=== PATIENT | male | born 1960 | race Caucasian/White ===

== ENCOUNTER 2025-05-15 10:42 | Inpatient (IN) ==
[2025-05-15] MEDS ORDERED: VANCOMYCIN CONSULT ACTIVE PRN (10:55)
[2025-05-15] MEDS: SODIUM CHLORIDE 0.9% 1,000 ML IV SCH (11:12)
--- NOTE | 2025-05-15 11:12 | Emergency Department Note ---
Impression & Plan Acute hypoxemic respiratory failure, Acute pneumonia, Tracheostomy dependent ED Provider Note NAME: BALTAZAR MALIN AGE: 65 SEX: M : 1960 ARRIVES VIA: Ambulance INFORMANT: Patient, ED PROVIDER(S): Jose Ruano MD CHIEF COMPLAINT: MEDICAL DECISION MAKING: Patient presents due to concern for shortness of breath and noted to have productive purulent sputum. IV was established and blood work was obtained along with sepsis protocols being initiated. Patient was ordered IV vancomycin and Zosyn. MRSA swab obtained. I did speak with respiratory to help with the patient's trach suctioning as well as trach collar placement and oxygen administration. The patient's patient did receive IV Zosyn and vancomycin. Patient blood work with a hemoglobin of 7.5 not significantly changed from March. Normal white count with a normal platelet count kidney function with MIGUEL. The patient was ordered additional IV fluids. I did update the patient's daughter Lucero at bedside he was comfortable with the plan of care. I did speak the on-call medicine service Dr. Guillen and the patient was admitted to the medicine service. Critical Care: I have personally spent 45 minutes of critical care time in direct management of this patient. This includes bedside care, interpretation of diagnostic studies, and testing, discussion with consultants, patient, and family members, and other require inpatient management activities. This 45 minutes is in excess of all separately billable procedures. Discussion w/ other healthcare providers: Dr. Guillen inpatient medicine service Prior /Outside records reviewed: None Differential diagnosis: Reactive airway disease, pneumonia, pneumothorax, COPD, CHF, ACS, pulmonary embolism, musculoskeletal, GERD as well as other pathologies were considered. Diagnostics, as interpreted by me: ECG: Normal sinus rhythm, rate of 90, normal intervals, normal axis no ST elevations. Cardiac monitoring: An order was placed for continuous cardiac monitoring. The monitor shows a rate of 89 with sinus rhythm. Patient was placed on pulse oximetry Medical decision rules: None Imaging studies: I informally interpreted the patient's chest x-ray does show concern for right lower lobe pneumonia with formal report to follow. HPI: Patient presents due to concern for shortness of breath. He reportedly went to [place] today and was noted to have sputum coming from his trach. The patient does have a prior history of head and neck cancer but does not reportedly have significant additional medical problems per the daughter Lucero who does provide some of the history. Patient reportedly did require a graft taken from his foot in order to reconstruct his jaw. The daughter reports that he did not have any issues up until today and that today's visit was supposed to be for routine follow-up purposes. He does follow with Dr. Andres for his head neck cancer and had followed with Dr. Mac in the past. History is somewhat limited given the patient's inability to vocalize complaints. PAST MEDICAL HISTORY: See Below PAST SURGICAL HISTORY: See Below SOCIAL HISTORY: See Below HOME MEDICATIONS: See Below ALLERGIES: See Below VITALS: See Below PHYSICAL EXAMINATION: GENERAL: Ill in appearance. Mild distress. EYE EXAM: Normal conjunctiva. PERRL, no anisocoria and EOM's grossly intact w/o pain. OROPHARYNX: Moist mucus membranes, grossly normal dentition. NECK: Trachea midline, no stridor. Trach in place. Productive purulent sputum noted coming from the trach tube. LUNGS: Coarse sounds in the right lower chest. Normal chest wall mechanics. HEART: NSR, no MRG. ABDOMEN: Abdomen soft, non-tender, no masses, no rebound or guarding. BACK: No CVA TTP. SKIN: No rashes and no bruising. UPPER EXTREMITIES: Upper extremities are grossly normal. LOWER EXTREMITIES: Grossly normal, no edema. NEURO EXAM: Awake and alert, follows commands, no obvious facial asymmetry, normal speech, moves all 4 extremities. 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 cancer (Chronic 01/09/22) Hypertension Medical History History of gastrostomy tube placement (03/31/22) Scalp laceration Orthostatic hypotension Hypokalemia Dizziness Delirium tremens Dehydration Calcified intracranial lesions Alcohol withdrawal Alcohol intoxication Left against medical advice Syncope and collapse Surgical History History of surgery (04/15/22) Left Osteocutaneous Fibula Free Flap, Inset to Right Oral Cavity Composite Defect with Microvascular Anastomosis Internal Fization/Plating of Mandible with Reconstruction Plate Repair of complex Introral Defect involving Right Oral Tongue, Floor of Mouth, Pharynx, Gingiva and Buccal Mucose, Retomolar Trione, Soft Palate, and Hemimandibulectomy. Complex Vestibuloplasty, Right Inferior Exploration of Right External Carotid Artery for Microvascular Anastomosis. Tracheostomy, planned, open Tracheobronchoscopy, flexible Dr. Andre Dixon History of surgery (04/15/22) Composite Resection of Right Oral Cavity Mass including Hemimandibulectomy, Partial Glossectomy, Portion of Floor of Mouth, Partial Pharyngectomy, and Partial Palatectomy Resection of Infratemporal Fossa Lesion, Extradural Extraction of Tooth #2 Right Neck Dissection Levels I-IV Dr. Kurtis Patel at [facility] History of shoulder surgery Right shoulder History of total right knee replacement Social History Smoking Status: Unknown if ever smoked Tobacco Type: Cigarettes packs per day: 1; Second Hand Exposure: Yes; Do You Dip or Chew Tobacco: Yes; Hx Alcohol Use: No Hx Substance Use: No Preferred Language: Swazi Communication Ability: Impaired Communication Tools: Writing Tablet Visual Impairment: No Limitations Hearing Ability: Normal Keyboarding Clerk Required: No Beliefs That Will Affect Care: None Current Living Situation: Parent Current Living Situation Comment: mother residing with patient current occupational status: disabled Other Information That Helps Us Care for You: No Feels Safe at Home: Yes Safety Concerns: Feels Safe At This Time Childhood Exposure to Second-Hand Smoke: Yes Diet: other Diet Comment: soft foods caffeine: No during the past year weight has: decreased > 10 lbs Dental Care, Regularly: No Assistive Devices: Other Assistive Devices Comment: Uses paper tablet to communicate Allergies Allergies Allergy/AdvReac Type Severity Reaction Status Date / Time No Known Allergies Allergy Verified 04/20/25 08:51 Home Meds Home Medications Medication Instructions Recorded Confirmed hydroxyzine HCl 50 mg tablet 0 mg PO HS 04/20/25 05/15/25 levothyroxine 100 mcg capsule 100 mcg PO DAILY 04/20/25 05/15/25 oxycodone 5 mg/5 mL oral solution 5 mg PO UD PRN Pain 05/15/25 05/15/25 Results & Data (ED) Vital Signs Vital Signs - 24 hr 05/15/25 10:53 05/15/25 10:53 05/15/25 10:53 Temperature 37.0 C Temperature Source Oral Pulse Rate 90 Pulse Rate [Apical] Pulse Rate from SpO2 Sensor Pulse Rhythm [Apical] Respiratory Rate 25 H Respiratory Effort / Characteristics Respiratory Depth Shallow Blood Pressure 117/61 Blood Pressure [Left Arm] Blood Pressure Mean 79 Blood Pressure Mean [Left Arm] Pulse Oximetry 100 100 Oxygen Delivery Method Non-rebreather Non-rebreather Non-rebreather Oxygen Flow Rate 15 Sepsis Recent Fever Within 48 Hours No Sepsis New/Unexplained Change in Mental Status No Sepsis Action Taken by Nursing No Action Required 05/15/25 11:20 05/15/25 11:32 05/15/25 11:33 Temperature Temperature Source Pulse Rate 82 85 Pulse Rate [Apical] 88 Pulse Rate from SpO2 Sensor 85 Pulse Rhythm [Apical] Respiratory Rate 24 24 Respiratory Effort / Characteristics Spontaneous Respiratory Depth Blood Pressure 111/74 Blood Pressure [Left Arm] Blood Pressure Mean 82 Blood Pressure Mean [Left Arm] Pulse Oximetry 100 100 Oxygen Delivery Method Room Air Trach Collar Oxygen Flow Rate 0 Sepsis Recent Fever Within 48 Hours Sepsis New/Unexplained Change in Mental Status Sepsis Action Taken by Nursing 05/15/25 11:45 05/15/25 12:00 05/15/25 12:15 Temperature Temperature Source Pulse Rate 94 H Pulse Rate [Apical] 88 79 Pulse Rate from SpO2 Sensor 90 Pulse Rhythm [Apical] Regular Respiratory Rate 28 H 25 H 22 Respiratory Effort / Characteristics Respiratory Depth Normal Blood Pressure 103/74 Blood Pressure [Left Arm] 123/90 132/65 Blood Pressure Mean 83 Blood Pressure Mean [Left Arm] 101 87 Pulse Oximetry 100 98 100 Oxygen Delivery Method Trach Collar Trach Collar Trach Collar Oxygen Flow Rate 0 0 Sepsis Recent Fever Within 48 Hours Sepsis New/Unexplained Change in Mental Status Sepsis Action Taken by Nursing 05/15/25 12:15 05/15/25 12:30 05/15/25 12:45 Temperature Temperature Source Pulse Rate 90 79 74 Pulse Rate [Apical] Pulse Rate from SpO2 Sensor 90 79 73 Pulse Rhythm [Apical] Respiratory Rate 19 20 20 Respiratory Effort / Characteristics Respiratory Depth Blood Pressure 132/65 119/57 L 116/69 Blood Pressure [Left Arm] Blood Pressure Mean 87 77 84 Blood Pressure Mean [Left Arm] Pulse Oximetry 100 100 97 Oxygen Delivery Method Trach Collar Trach Collar Oxygen Flow Rate 0 0 Sepsis Recent Fever Within 48 Hours Sepsis New/Unexplained Change in Mental Status Sepsis Action Taken by Nursing 05/15/25 13:00 05/15/25 13:15 Temperature Temperature Source Pulse Rate 80 84 Pulse Rate [Apical] Pulse Rate from SpO2 Sensor 80 84 Pulse Rhythm [Apical] Respiratory Rate 17 20 Respiratory Effort / Characteristics Respiratory Depth Blood Pressure 117/67 122/66 Blood Pressure [Left Arm] Blood Pressure Mean 83 84 Blood Pressure Mean [Left Arm] Pulse Oximetry 100 100 Oxygen Delivery Method Trach Collar Oxygen Flow Rate 0 Sepsis Recent Fever Within 48 Hours Sepsis New/Unexplained Change in Mental Status Sepsis Action Taken by Prison Medications Current Medication List: was personally reviewed by me Laboratory Data Attestation: I reviewed the patient's lab results. 05/15/25 11:05 05/16/25 05:59 Lab Results 05/15/25 05/15/25 Range/Units 11:05 13:20 WBC 7.08 (4.8-10.8) K/ul RBC 2.28 L (4.70-6.10) M/uL Hgb 7.5 L (14.0-18.0) g/dL Hct 22.1 L (42.0-52.0) % MCV 96.9 (80.0-100.0) fL MCH 32.9 (25.0-34.0) pg MCHC 33.9 (32.0-36.0) g/dL RDW Std Deviation 55.2 H (36.4-46.3) fL RDW Coeff of Hilary 15.5 H (11.5-14.5) % Plt Count 132 (130-400) K/uL MPV 10.5 (9.4-12.4) fL Immature Gran % (Auto) 0.6 % Neut % (Auto) 82.2 % Lymph % (Auto) 6.8 % [place] % (Auto) 9.5 % Eos % (Auto) 0.6 % Baso % (Auto) 0.3 % Neut # (Auto) 5.83 (1.40-6.50) K/uL Lymph # (Auto) 0.48 L (1.20-3.40) K/uL [place] # (Auto) 0.67 H (0.11-0.59) K/uL Eos # (Auto) 0.04 (0.00-0.50) K/uL Baso # (Auto) 0.02 (0.00-0.20) K/uL Immature Gran # (Auto) 0.04 (0.01-0.20) K/uL Polychromasia 1+ VBG pH 7.55 H (7.36-7.41) VBG pCO2 26 L (38-50) mmHg VBG pO2 < 20 mmHg VBG HCO3 23 mmol/L VBG O2 Saturation < 60.0 % VBG Base Excess 1.1 mEq/L Sodium 133 L (136-145) mmol/L Potassium 3.9 (3.5-5.1) mmol/L Chloride 96 L (98-107) mmol/L Carbon Dioxide 23 (21-32) mmol/L Anion Gap 14 H (3-11) BUN 64 H (6-23) mg/dl Creatinine 1.84 H (0.6-1.4) mg/dl Est Cr Clr Drug Dosing Not Reportable eGFR 40.43 BUN/Creatinine Ratio 34.8 H (10-20) Glucose 97 (70-99(Fasting)) mg/dl Lactate 2.3 H* 1.4 (0.4-2.0) mmol/L Calcium 10.0 (8.6-10.3) mg/dl Magnesium 2.2 (1.7-2.4) mg/dl Total Bilirubin 0.5 (0.2-1.0) mg/dl Direct Bilirubin 0.1 (0-0.2) mg/dl AST 18 (13-39) U/L ALT 7 (7-52) U/L Alkaline Phosphatase 90 (34-104) U/L Troponin I High Sens 3.9 (0-20) pg/ml Total Protein 8.5 H (6.0-8.3) gm/dl Albumin 3.9 (3.4-5.0) gm/dl Procalcitonin 0.46 (0-0.5) ng/ml P. aeruginosa (PCR) DETECTED A (NotDetected) blaIMP Car res Gene PCR Not Detected (NotDetected) KPC-Carbap Res Gene PCR Not Detected (NotDetected) blaNDM Car Res Gene PCR Not Detected (NotDetected) blaVIM Car Res Gene PCR Not Detected (NotDetected) CTX-M Gene Resistance (PCR) Not Detected (NotDetected) Bld Cult ID Panel PCR See PCR Comment (NotDetected) Administered Medications Acetaminophen (Acetaminophen 325 Mg Tab) 650 mg PO Q4H PRN PRN Reason: pain/fever Stop: 06/14/25 15:23 Last Admin: 05/15/25 17:45 Dose: 650 mg Documented By: LAISHA Albuterol (Albut/Ipratrop 3mg/0.5mg Neb 3 Ml Vial) 3 ml NEB Q6R LIANNA; Protocol Stop: 06/14/25 18:59 Last Admin: 05/16/25 07:39 Dose: 3 ml Documented By: Admin: 05/16/25 01:12 Dose: 3 ml Documented By: Admin: 05/15/25 19:46 Dose: 3 ml Documented By: CATALINA Heparin Sodium (Porcine) (Heparin Sod 5,000 Unit/0.5 Ml Vial) 5,000 units SQ Q12 LIANNA Stop: 06/14/25 20:59 Last Admin: 05/15/25 21:06 Dose: 5,000 units Documented By: NAJMA Hydroxyzine HCl (Hydroxyzine Hcl 25 Mg Tab) 50 mg PO HS LIANNA Stop: 06/14/25 20:59 Last Admin: 05/15/25 21:01 Dose: Not Given Documented By: NAJMA Lactated Ringer's (Lr) 1,000 mls @ 80 mls/hr IV .[id number] [facility] Stop: 05/16/25 16:23 Last Admin: 05/16/25 05:26 Dose: 80 mls/hr Documented By: Infusion: 05/16/25 05:24 Dose: Infused Documented By: Admin: 05/15/25 16:54 Dose: 80 mls/hr Documented By: LAISHA Azithromycin (Zithromax) 500 mg in 255 mls @ 127.5 mls/hr IV Q24H [facility] Stop: 05/20/25 15:59 Last Infusion: 05/15/25 19:30 Dose: Infused Documented By: Admin: 05/15/25 17:00 Dose: 127.5 mls/hr Documented By: LAISHA Piperacillin Sod/Tazobactam Sod (Zosyn) 4.5 gm in 100 mls @ 200 mls/hr IV Q8H [facility]; Protocol Stop: 05/20/25 16:29 Last Infusion: 05/16/25 01:10 Dose: Infused Documented By: Admin: 05/16/25 00:40 Dose: 200 mls/hr Documented By: Infusion: 05/15/25 18:20 Dose: Infused Documented By: Admin: 05/15/25 17:37 Dose: 200 mls/hr Documented By: LAISHA Levothyroxine Sodium (Levothyroxine Sodium 100 Mcg Tablet) 100 mcg PO DAILYBB [facility] Stop: 06/15/25 06:29 Last Admin: 05/16/25 05:27 Dose: 100 mcg Documented By: NAJMA Nutritional Formula (Nutren Liqd 2.0 1,000 Ml Bag) 1,000 ml PEG DAILY@1830 [facility]; Protocol Stop: 06/14/25 18:14 Last Admin: 05/15/25 18:26 Dose: 1,000 ml Documented By: LAISHA Ondansetron HCl (Ondansetron Inj 2 Mg/Ml 2 Ml Vial) 4 mg IV Q6H PRN PRN Reason: Nausea Stop: 06/14/25 15:23 Last Admin: 05/15/25 16:56 Dose: 4 mg Documented By: LAISHA Sterile Water (Tube Feeding Water Flush) 100 ml GT Q2H [facility] Stop: 06/14/25 16:44 Last Admin: 05/16/25 05:27 Dose: 100 ml Documented By: Admin: 05/16/25 05:26 Dose: 100 ml Documented By: Admin: 05/16/25 05:26 Dose: 100 ml Documented By: Admin: 05/16/25 00:40 Dose: 100 ml Documented By: Admin: 05/15/25 23:48 Dose: 100 ml Documented By: Admin: 05/15/25 21:01 Dose: 100 ml Documented By: Admin: 05/15/25 19:00 Dose: 100 ml Documented By: Admin: 05/15/25 18:13 Dose: 100 ml Documented By: LAISHA Discontinued Medications Albuterol (Albut/Ipratrop 3mg/0.5mg Neb 3 Ml Vial) Confirm Administered Dose 3 ml .ROUTE .STK-MED ONE Stop: 05/15/25 14:37 Last Admin: 05/15/25 14:43 Dose: 3 ml Documented By: JUSTA Albuterol (Albut/Ipratrop 3mg/0.5mg Neb 3 Ml Vial) 3 ml NEB NOW STA; Protocol Stop: 05/15/25 14:43 Last Admin: 05/15/25 14:43 Dose: Not Given Documented By: EAM Sodium Chloride (Nss) 1,000 mls @ 999 mls/hr IV .Q1H1M LIANNA Stop: 05/15/25 12:00 Last Infusion: 05/15/25 12:21 Dose: Infused Documented By: Admin: 05/15/25 11:12 Dose: 999 mls/hr Documented By: TDM Piperacillin Sod/Tazobactam Sod (Zosyn) 4.5 gm in 100 mls @ 200 mls/hr IV NOW ONE; Protocol Stop: 05/15/25 11:24 Last Infusion: 05/15/25 12:01 Dose: Infused Documented By: Admin: 05/15/25 11:26 Dose: 200 mls/hr Documented By: TDM Vancomycin HCl 1,250 mg/ (Sodium Chloride) 525 mls @ 200 mls/hr IV NOW ONE Stop: 05/15/25 13:32 Last Infusion: 05/15/25 15:34 Dose: Infused Documented By: Admin: 05/15/25 11:28 Dose: 200 mls/hr Documented By: TDM Sodium Chloride (Nss) 1,000 mls @ 999 mls/hr IV .Q1H1M ONE Stop: 05/15/25 13:16 Last Infusion: 05/15/25 13:25 Dose: Infused Documented By: Admin: 05/15/25 12:21 Dose: 999 mls/hr Documented By: TDM Ceftriaxone Sodium (Rocephin) 2,000 mg in 50 mls @ 100 mls/hr IV Q24H [facility] Stop: 05/20/25 15:59 Last Admin: 05/15/25 17:24 Dose: Not Given Documented By: MPS Imaging Data Radiologist's Impression: Chest X-Ray 05/15/25 10:53 SINGLE VIEW CHEST CLINICAL HISTORY: Sepsis FINDINGS: An AP, portable, semierect chest radiograph is compared to study dated 07/30/2023. Correlation is made with PET CT dated 04/11/2025. A tracheostomy and a right internal jugular central venous catheter are unchanged in position. The heart is enlarged noting atherosclerotic calcification of the thoracic aorta. The pulmonary vasculature is not congested. Emphysema and chronic interstitial thickening is similar to previous. There are patchy airspace opacities in the right lower lung which are new from the recent PET examination. No large pleural effusion or pneumothorax is seen. The skeletal structures are osteopenic. The bony thorax is grossly intact. Degenerative change is noted in the shoulders and spine. Surgical clips are seen in the right lower neck. IMPRESSION: 1. Cardiomegaly and emphysema without radiographic evidence of congestive failure. 2. Airspace opacities in the right lower lung are new from the recent PET/CT and suspicious for pneumonia/aspiration pneumonitis. Clinical correlation will be required and radiographic follow-up to resolution is recommended. ACT 112: Negative or not required by law. Electronically signed by: Jesus Kwan M.D. 05/15/2025 11:21 AM Discharge Plan Visit Data Chief Complaint: Shortness of Breath/Dyspnea Stated Complaint: SOB ED Provider: Jose Ruano Discharge Problem: Acute hypoxemic respiratory failure, Acute pneumonia, Tracheostomy dependent Patient Disposition: Admitted As Inpatient Condition: Good Discharge Instructions Interventions: ED Discharge Assessment Last Done: 05/15/25 15:25
--- NOTE | 2025-05-15 11:22 | XRay Report ---
SINGLE VIEW CHEST CLINICAL HISTORY: Sepsis FINDINGS: An AP, portable, semierect chest radiograph is compared to study dated 07/30/2023. Correlati on is made with PET CT dated 04/11/2025. A tracheostomy and a right internal jugular central venous ca theter are unchanged in position. The heart is enlarged noting atherosclerotic calcification of the t horacic aorta. The pulmonary vasculature is not congested. Emphysema and chronic interstitial thicken ing is similar to previous. There are patchy airspace opacities in the right lower lung which are new from the recent PET examination. No large pleural effusion or pneumothorax is seen. The skeletal str uctures are osteopenic. The bony thorax is grossly intact. Degenerative change is noted in the should ers and spine. Surgical clips are seen in the right lower neck. IMPRESSION: 1. Cardiomegaly and emphysema without radiographic evidence of congestive failure. 2. Airspace opacities in the right lower lung are new from the recent PET/CT and suspicious for pneum onia/aspiration pneumonitis. Clinical correlation will be required and radiographic follow-up to reso lution is recommended. ACT 112: Negative or not required by law. Electronically signed by: Jesus Kwan M.D. 05/15/2025 11:21 AM
[2025-05-15 11:26] LABS: Base Excess VBG 1.1 mEq/L; HCO3 VBG 23 mmol/L; Oxygen Saturation VBG < 60.0 %; PCO2 VBG 26 mmHg (38-50); PO2 VBG < 20 mmHg; pH VBG 7.55 (7.36-7.41)
[2025-05-15] MEDS: PIPERACILLIN/TAZOBACTAM 4.5 GM/100 ML BAG IV ONE (11:26)
[2025-05-15 11:28] LABS: Hematocrit (blood only) 22.1 % (42.0-52.0); Hemoglobin 7.5 g/dL (14.0-18.0); Immature Granulocytes # (auto) 0.04 K/uL (0.01-0.20); Immature Granulocytes % (auto) 0.6 %; Mean Corpuscular Hemoglobin 32.9 pg (25.0-34.0); Mean Corpuscular Volume 96.9 fL (80.0-100.0); Platelet Count 132 K/uL (130-400); RDW Standard Deviation 55.2 fL (36.4-46.3); Red Blood Count 2.28 M/uL (4.70-6.10); White Blood Count 7.08 K/ul (4.8-10.8)
[2025-05-15] MEDS: VANCOMYCIN HCL 1,250 MG in SODIUM CHLORIDE 0.9% 500 ML IV ONE (11:28)
[2025-05-15 11:44] LABS: Polychromasia 1+
[2025-05-15 11:45] LABS: Alanine Aminotransferase 7 U/L (7-52); Albumin Level 3.9 gm/dl (3.4-5.0); Alkaline Phosphatase 90 U/L (34-104); Anion Gap 14 (3-11); Bilirubin,Total 0.5 mg/dl (0.2-1.0); Blood Urea Nitrogen 64 mg/dl (6-23); Calcium 10.0 mg/dl (8.6-10.3); Carbon Dioxide 23 mmol/L (21-32); Chloride 96 mmol/L (98-107); Glucose 97 mg/dl (70-99(Fasting)); Magnesium 2.2 mg/dl (1.7-2.4); Potassium 3.9 mmol/L (3.5-5.1); Sodium 133 mmol/L (136-145); Total Protein 8.5 gm/dl (6.0-8.3)
[2025-05-15] MEDS: SODIUM CHLORIDE 0.9% 1,000 ML IV ONE (12:21)
--- NOTE | 2025-05-15 13:06 | History & Physical Report ---
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 Patient's daughter notes that she has had thick secretions that are occasionally bloody and brownish over the past 1 to 2 months. Chest x-ray revealed right lower lobe nodular infiltrates. #Acute Pneumonia #Probable COPD -WBC: 7, Lactate 2.3->1.4, Procalcitonin 0.46 -Pulmonology on board, appreciate recs -originally started Rocephin and Azithromycin, Pulm changed Rocephin to Zosyn due to chronic trach placement without change -continue Zosyn 4.5g q8h and Azithromycin 500mg daily -Duonebs q6hrs -Supplemental Oxygen prn -MRSA nares pending #Trach Dependent -s/p tracheostomy exchange. -Continue routine trach care per nursing and RT. Appreciate nursing and RT input. 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 Vasquez is a 65yo gentleman with PMH of head and neck squamous cell cancer, former smoker who presented to the ED for shortness of breath and purulent secretions from his tracheostomy. He is accompanied by his daughter today who provided the history as pt is unable to speak but is able to nod yes/no. Pt was apparently well until this morning when daughter went to see him and noticed his breathing was more labored than usual. She noted pt had more secretions out of his trach tube. He has had the trach in place since about September 2024 as per the family. She said pt removed the tube in his trach as that helps him breath better. No known sick contacts. Pt denies any pain or discomfort. Pt denies fever, chills, CP, palpitations, N/V, abdominal pain, or complaints. 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 (Chronic) Cellulitis, face Malignant neoplasm of retromolar area (Chronic) Oral cancer (Chronic 01/09/22) Hypertension Medical History History of gastrostomy tube placement (03/31/22) Scalp laceration Orthostatic hypotension Hypokalemia Dizziness Delirium tremens Dehydration Calcified intracranial lesions Alcohol withdrawal Alcohol intoxication Left against medical advice Syncope and collapse Surgical History History of surgery (04/15/22) Left Osteocutaneous Fibula Free Flap, Inset to Right Oral Cavity Composite Defect with Microvascular Anastomosis Internal Fization/Plating of Mandible with Reconstruction Plate Repair of complex Introral Defect involving Right Oral Tongue, Floor of Mouth, Pharynx, Gingiva and Buccal Mucose, Retomolar Trione, Soft Palate, and Hemimandibulectomy. Complex Vestibuloplasty, Right Inferior Exploration of Right External Carotid Artery for Microvascular Anastomosis. Tracheostomy, planned, open Tracheobronchoscopy, flexible Dr. Andre Dixon History of surgery (04/15/22) Composite Resection of Right Oral Cavity Mass including Hemimandibulectomy, Partial Glossectomy, Portion of Floor of Mouth, Partial Pharyngectomy, and Partial Palatectomy Resection of Infratemporal Fossa Lesion, Extradural Extraction of Tooth #2 Right Neck Dissection Levels I-IV Dr. Kurtis Patel at [facility] History of shoulder surgery Right shoulder History of total right knee replacement Social History Smoking Status: Unknown if ever smoked Tobacco Type: Cigarettes packs per day: 1; Second Hand Exposure: Yes; Do You Dip or Chew Tobacco: Yes; Hx Alcohol Use: No Hx Substance Use: No Preferred Language: Upper Sorbian Communication Ability: Impaired Communication Tools: Writing Tablet Visual Impairment: No Limitations Hearing Ability: Normal Process Tech Required: No Beliefs That Will Affect Care: None Current Living Situation: Parent Current Living Situation Comment: mother residing with patient current occupational status: disabled Other Information That Helps Us Care for You: No Feels Safe at Home: Yes Safety Concerns: Feels Safe At This Time Childhood Exposure to Second-Hand Smoke: Yes Diet: other Diet Comment: soft foods caffeine: No during the past year weight has: decreased > 10 lbs Dental Care, Regularly: No Assistive Devices: Other Assistive Devices Comment: Uses paper tablet to communicate Review of Systems Review of Systems: per HPI Physical Exam Physical Exam: GA: ill-appearing in mild distress. AAOx3 HEENT: facial deformity. EOMI. Trachea midline, no stridor. Trach in place. Productive purulent white sputum noted coming from the trach tube. LUNGS: Normal chest wall mechanics. Coarse sounds b/l worse right lower chest. HEART: NSR, no MRG. MSK: no gross abnormalities or focal deficits SKIN: warm, dry, no edema NEURO: no focal deficits. Results & Data Results & Data Vital Signs (Past 12 Hours) Vital Signs Temp Pulse Pulse Resp BP BP Pulse Ox 05/15/25 12:15 79 22 132/65 100 05/15/25 12:00 88 25 H 123/90 98 05/15/25 11:45 94 H 28 H 103/74 100 05/15/25 11:33 85 24 111/74 100 05/15/25 11:32 82 05/15/25 11:20 88 24 100 05/15/25 10:53 05/15/25 10:53 100 05/15/25 10:53 37.0 C 90 25 H 117/61 100 O2 Del Method O2 Flow Rate 05/15/25 12:15 Trach Collar 0 05/15/25 12:00 Trach Collar 05/15/25 11:45 Trach Collar 0 05/15/25 11:33 05/15/25 11:32 05/15/25 11:20 Room Air, Trach Collar 0 05/15/25 10:53 Non-rebreather 05/15/25 10:53 Non-rebreather 05/15/25 10:53 Non-rebreather 15 Supervising Physician Co-Signing Physician Notes I personally examined the patient and verified mathews points of history and exam, discussed case, and agree with decision making and plan documented by Dr. Pantoja. Patient is a 65-year-old male with past medical history pertinent for head and neck squamous cell carcinoma s/p resection and reconstruction with laryngectomy and tracheostomy on admission for acute pneumonia. On exam patient appears uncomfortable, facial deformity present, tracheostomy with white frothy expectorant, coarse breath sounds bilaterally, heart with regular rate and rhythm, bowel sounds present, lower extremities without edema. Patient currently on Zosyn and azithromycin. Pulmonary aware as patient is tracheostomy dependent and required trach change. Concern for respiratory fatigue with increased WOB and coughing. Respiratory therapy following. Gastrostomy tube in place, nutrition evaluated and initiated feeds. Currently not requiring oxygen. Discussed with daughter at bedside. Resident Activity Tracking Resident Involvement: Resident Care Provided Care Provided: Adult [facility] Medicine
[2025-05-15] MEDS: ALBUT/IPRATROP 3MG/0.5MG NEB 3 ML VIAL NEB STA (14:43)
[2025-05-15] MEDS: ALBUT/IPRATROP 3MG/0.5MG NEB 3 ML VIAL ONE (14:43)
[2025-05-15] MEDS ORDERED: ALBUT/IPRATROP 3MG/0.5MG NEB 3 ML VIAL NEB PRN (15:24)
[2025-05-15] MEDS ORDERED: ALUMINUM/MAGNESIUM SUSP 30 ML UDC PO PRN (15:24)
[2025-05-15] MEDS ORDERED: MELATONIN 3 MG TAB PO PRN (15:24)
[2025-05-15] MEDS ORDERED: POLYETHYLENE (MIRALAX) 17 GM PACK PO PRN (15:24)
--- NOTE | 2025-05-15 16:07 | Pulmonary Consultation ---
Date of Consultation May 15, 2025 Assessment & Plan (1) Acute pneumonia: MRSA screen pending. Sputum cultures pending. Patient was started on Rocephin and azithromycin by hospitalist service. I discontinued Rocephin and started the patient on Zosyn given his tracheostomy is 8 months old and has not been changed in that timeframe. Patient also has probable COPD. Patient with thick brown and reddish secretions. If he has significant hemoptysis, would give nebulized TXA. (2) Tracheostomy dependent: Tracheostomy today changed to a size 6 Shiley uncuffed. Patient has not had a tracheostomy change in 8 months since it was first put in. Continue routine trach care per nursing and RT. Appreciate nursing and RT input. (3) Metastatic squamous cell carcinoma to head and neck: Followed by ENT and oncology Plan I personally spent 55 minutes on the date of service in activities related to this patient's encounter, including 30 minutes of counseling with patient regarding treatment plan and 25 minutes of clinical review of lab results and documentation. I did student services counselor the patient regarding their diagnosis and treatment plan and they expressed understanding. This note was dictated using voice recognition software and may include grammatical errors, extra words, word substitutions and other inaccuracies due to errors in the voice recognition software and differences in speech patterns. History of Present Illness Reason for Consultation: "Dyspnea, tachypnea" Attending Physician: Patricia Waddell, DO History of Present Illness 65-year-old male with a history of head and neck cancer status post laryngectomy and tracheostomy presenting to the hospital due to shortness of breath purulent secretions from his tracheostomy. Patient's daughter notes that she has had thick secretions that are occasionally bloody and brownish over the past 1 to 2 months. Chest x-ray revealed right lower lobe nodular infiltrates. I personally reviewed the imaging myself. Patient started on Rocephin and azithromycin per the hospitalist service. Sputum cultures pending. Allergies Allergy/AdvReac Type Severity Reaction Status Date / Time No Known Allergies Allergy Verified 04/20/25 08:51 Home Medications Medication Instructions Recorded Confirmed Type hydroxyzine HCl 50 mg tablet 0 mg PO HS 04/20/25 05/15/25 History levothyroxine 100 mcg capsule 100 mcg PO DAILY 04/20/25 05/15/25 History oxycodone 5 mg/5 mL oral solution 5 mg PO UD PRN Pain 05/15/25 05/15/25 History Patient History Medical History History of gastrostomy tube placement (03/31/22) Scalp laceration Orthostatic hypotension Hypokalemia Dizziness Delirium tremens Dehydration Calcified intracranial lesions Alcohol withdrawal Alcohol intoxication Left against medical advice Syncope and collapse Surgical History History of surgery (04/15/22) Left Osteocutaneous Fibula Free Flap, Inset to Right Oral Cavity Composite Defect with Microvascular Anastomosis Internal Fization/Plating of Mandible with Reconstruction Plate Repair of complex Introral Defect involving Right Oral Tongue, Floor of Mouth, Pharynx, Gingiva and Buccal Mucose, Retomolar Trione, Soft Palate, and Hemimandibulectomy. Complex Vestibuloplasty, Right Inferior Exploration of Right External Carotid Artery for Microvascular Anastomosis. Tracheostomy, planned, open Tracheobronchoscopy, flexible Dr. Andre Dixon History of surgery (04/15/22) Composite Resection of Right Oral Cavity Mass including Hemimandibulectomy, Partial Glossectomy, Portion of Floor of Mouth, Partial Pharyngectomy, and Partial Palatectomy Resection of Infratemporal Fossa Lesion, Extradural Extraction of Tooth #2 Right Neck Dissection Levels I-IV Dr. Kurtis Patel at [facility] History of shoulder surgery Right shoulder History of total right knee replacement Social History Smoking Status: Unknown if ever smoked Tobacco Type: Cigarettes packs per day: 1; Second Hand Exposure: Yes; Do You Dip or Chew Tobacco: Yes; Hx Alcohol Use: Yes Alcohol type: beer Alcohol Intake Frequency: 4 or More x per/Week Alcohol Intake Frequency Comment: approximately 15 cans per day Hx Substance Use: No Preferred Language: Faroese Communication Ability: Effective Communication Tools: Writing Tablet Visual Impairment: No Limitations Hearing Ability: Normal Measurer Machine Required: No Beliefs That Will Affect Care: None Current Living Situation: Parent Current Living Situation Comment: mother residing with patient current occupational status: disabled Feels Safe at Home: Yes Childhood Exposure to Second-Hand Smoke: Yes Diet: other Diet Comment: soft foods caffeine: No during the past year weight has: decreased > 10 lbs Dental Care, Regularly: No Assistive Devices: None Review of Systems Review of Systems: All systems reviewed & are unremarkable except as noted in HPI & below Physical Exam Physical Exam: Constitutional: Patient appears to be of their stated age. Patient is in no apparent distress. Patient is well-developed. Eyes: Pupils are equal round and reactive to light. Conjunctivae are normal. Anicteric sclera. Ears nose, mouth and throat: Mallampati class 2. Normal posterior oropharynx. Uvula is midline. Neck: Size [address] Trach appears dirty with purulent secretions. Respiratory: Mild tachypnea. Rhonchi in the right lower lobe. Cardiovascular: Regular rate and rhythm. No murmurs. No edema. Gastrointestinal: Normal bowel sounds, soft, nontender and nondistended. No hepatosplenomegaly noted. Musculoskeletal: No cyanosis. Patient is able to move all extremities. Skin: No rashes, warm dry and intact. Neurologic: No obvious focal neurological deficits seen. Psychiatric: Alert and oriented x3 with a euthymic affect. Results & Data Results & Data Vital Signs (Past 12 Hours) Vital Signs Temp Pulse Pulse Resp BP BP BP 05/15/25 15:05 88 19 111/52 L 05/15/25 14:51 81 05/15/25 14:44 80 18 05/15/25 13:15 84 20 122/66 05/15/25 13:00 80 17 117/67 05/15/25 12:45 74 20 116/69 05/15/25 12:30 79 20 119/57 L 05/15/25 12:15 90 19 132/65 05/15/25 12:15 79 22 132/65 05/15/25 12:00 88 25 H 123/90 05/15/25 11:45 94 H 28 H 103/74 05/15/25 11:33 85 24 111/74 05/15/25 11:32 82 05/15/25 11:20 88 24 05/15/25 10:53 05/15/25 10:53 05/15/25 10:53 37.0 C 90 25 H 117/61 Pulse Ox O2 Del Method O2 Flow Rate 05/15/25 15:05 100 Room Air, Trach Collar 05/15/25 14:51 05/15/25 14:44 100 Room Air 05/15/25 13:15 100 05/15/25 13:00 100 Trach Collar 0 05/15/25 12:45 97 Trach Collar 0 05/15/25 12:30 100 Trach Collar 0 05/15/25 12:15 100 05/15/25 12:15 100 Trach Collar 0 05/15/25 12:00 98 Trach Collar 05/15/25 11:45 100 Trach Collar 0 05/15/25 11:33 100 05/15/25 11:32 05/15/25 11:20 100 Room Air, Trach Collar 0 05/15/25 10:53 Non-rebreather 05/15/25 10:53 100 Non-rebreather 05/15/25 10:53 100 Non-rebreather 15 PG Care Time/CCT Total # of Minutes Spent Total Time Spent with Patient: Total time spent is greater than 50% in coordination of care (as documented) at patient's floor/unit and/or counseling patient: Coding Level of Care Code 55998 INT INP/OBS CARE 2/55MIN Diagnoses Acute pneumonia J18.9 Tracheostomy dependent Z93.0 Metastatic squamous cell carcinoma to head and neck C79.89
--- NOTE | 2025-05-15 16:34 | Procedure Note ---
Procedure Note Date of Service May 15, 2025 Verbal consent obtained from the patient for tracheostomy exchange. Old uncuffed tracheostomy was removed without issue. New uncuffed size 6 Shiley tracheostomy inserted without issue. Thick secretions noted from the stoma site which were removed with a 4 x 4 gauze. Patient tolerated the procedure well. [facility] [place] Procedure Codes (Charges) Pulmonary/Thoracic Procedure 1: Pulmonary and Thoracic: 75264 Tracheotomy tube change prior to Fistula Coding CPT Codes Pulmonary/Thoracic - Pulmonary and Thoracic: 01378 Tracheotomy tube change prior to Fistula ([id number]) Additional Codes Date of Service (PG.SURGERY)
[2025-05-15] MEDS ORDERED: NUTREN LIQD 2.0 1,000 ML BAG PEG SCH ×2 (16:45→18:15)
[2025-05-15] MEDS: LACTATED RINGER'S 1,000 ML IV SCH (16:54)
[2025-05-15] MEDS: ONDANSETRON INJ 2 MG/ML 2 ML VIAL IV PRN (16:56)
[2025-05-15] MEDS: AZITHROMYCIN 500 MG/255 ML BAG IV SCH (17:00)
[2025-05-15] MEDS: cefTRIAXone SODIUM 2,000 MG/50 ML BAG IV SCH (17:24)
[2025-05-15] MEDS: PIPERACILLIN/TAZOBACTAM 4.5 GM/100 ML BAG IV SCH (17:37)
[2025-05-15] MEDS: ACETAMINOPHEN 325 MG TAB PO PRN (17:45)
[2025-05-15] MEDS: TUBE FEEDING WATER FLUSH GT SCH (18:13)
[2025-05-15] MEDS: NUTREN LIQD 2.0 1,000 ML BAG PEG SCH (18:26)
[2025-05-15] MEDS: ALBUT/IPRATROP 3MG/0.5MG NEB 3 ML VIAL NEB SCH (19:46)
[2025-05-15] MEDS: HEPARIN SOD 5,000 UNIT/0.5 ML VIAL SQ SCH (21:06)
[2025-05-16] MEDS: LEVOTHYROXINE SODIUM 100 MCG TABLET PO SCH (05:27)
--- NOTE | 2025-05-16 06:35 | Hospitalist Progress Note ---
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 Patient's daughter notes that she has had thick secretions that are occasionally bloody and brownish over the past 1 to 2 months. Chest x-ray revealed right lower lobe nodular infiltrates. Pt is currently being managed for pneumonia. #Acute Pneumonia #Probable COPD -WBC: 5.3, Lactate 2.3->1.4, Procalcitonin 0.46 -MRSA nares negative -PCR + for pseudomonas -following cultures -Pulmonology on board, appreciate recs -ID on board, appreciate recs -continue Zosyn 4.5g q8h -Azithromycin 500mg daily discontinued -follow sensitivities and adjust abx as needed -Duonebs q6hrs -Supplemental Oxygen prn #Trach Dependent -s/p tracheostomy exchange. 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 Pantoja. Patient is a 65-year-old male with past medical history pertinent for head and n katelin squamous cell carcinoma s/p resection and reconstruction with laryngectomy and tracheostomy on admission for acute pneumonia. BioFire positive for Pseudomonas, sputum culture positive for Pseudomonas, in addition to blood culture. Patient remains on Zosyn. ID evaluated and does not recommend dual coverage for Pseudomonas however suggests changed to meropenem if patient worsens or sensitivities reveal resistance. Hemoglobin 5.8 today, patient given 1 unit packed red blood cells, repeat hemoglobin pending. Copious sputum from trach continues, patient maintains strong cough effort, he remains on room air. Team contacted radiation oncology for upcoming treatment 05/18/2025. Subjective No overnight events. Pt seen and examined this AM at bedside. Today he states he is feeling better. Denies any pain or complaints. Denies any active bleeding--blood in stools, nosebleeds, hemoptysis, or hematuria. Denies fever, chills, CP, SOB, abdominal pain. Review of Systems Review of Systems: per HPI Physical Exam Physical Exam: GA: ill-appearing in mild distress. AAOx3 HEENT: facial deformity. EOMI. Trachea midline, no stridor. Trach in place. Productive purulent yellow-green sputum occasionally expressed when coughing LUNGS: Normal chest wall mechanics. Not tachypneic. Coarse sounds b/l worse right lower chest. HEART: NSR, no MRG. MSK: no gross abnormalities or focal deficits SKIN: warm, dry, no edema NEURO: no focal deficits. Results & Data Results & Data Vital Signs (Past 12 Hours) Vital Signs Temp Pulse Pulse Pulse Resp BP BP 05/16/25 03:07 36.4 C L 71 16 100/55 L 05/16/25 01:12 76 18 05/15/25 23:21 36.9 C 65 16 96/58 L 05/15/25 21:00 05/15/25 20:57 83 05/15/25 20:56 36.9 C 81 20 108/50 L 05/15/25 19:46 82 18 Pulse Ox O2 Del Method 05/16/25 03:07 97 Room Air 05/16/25 01:12 98 Room Air 05/15/25 23:21 97 Room Air 05/15/25 21:00 Trach Collar 05/15/25 20:57 05/15/25 20:56 98 Trach Collar 05/15/25 19:46 100 Room Air Resident Activity Tracking Resident Involvement: Resident Care Provided Care Provided: Adult Hospital Medicine
[2025-05-16 07:09] LABS: Alanine Aminotransferase 5.0 U/L (7-52); Albumin Globulin Ratio 1.0 (0.9-2); Albumin Level 2.9 gm/dl (3.4-5.0); Alkaline Phosphatase 57.0 U/L (34-104); Anion Gap 6.0 (3-11); Bilirubin,Total 0.3 mg/dl (0.2-1.0); Blood Urea Nitrogen 50.0 mg/dl (6-23); Calcium 8.1 mg/dl (8.6-10.3); Carbon Dioxide 24.0 mmol/L (21-32); Chloride 104.0 mmol/L (98-107); Creatinine Clr Calc Pharmacy 34.2 ml/min; Globulin 2.9 gm/dl (2.5-4.0); Glucose 114.0 mg/dl (70-99(Fasting)); Potassium 4.3 mmol/L (3.5-5.1); Sodium 134.0 mmol/L (136-145); Total Protein 5.8 gm/dl (6.0-8.3)
[2025-05-16 07:38] LABS: A calco-baum cmplx NotReported Not Detected (NotDetected); Bact fragilis Not Reported Not Detected (NotDetected); Blood Culture Id Panel See PCR Comment (NotDetected); C auris Not Reported Not Detected (NotDetected); CTX-M Resistant Gene Not Detected (NotDetected); Calbicans Not Reported Not Detected (NotDetected); Candida glabrata Not Reported Not Detected (NotDetected); Candida krusei Not Reported Not Detected (NotDetected); Cneoformans/gatti Not Reported Not Detected (NotDetected); Cparapsilosis Not Reported Not Detected (NotDetected); Ctropicalis Not Reported Not Detected (NotDetected); E cloacae compx Not Reported Not Detected (NotDetected); Efaecalis Not Reported Not Detected (NotDetected); Efaecium Not Reported Not Detected (NotDetected); Enterobacterales Not Reported Not Detected (NotDetected); Escherichia coli Not Reported Not Detected (NotDetected); H influenzae Not Reported Not Detected (NotDetected); IMP Resistant Gene Not Detected (NotDetected); K aerogenes Not Reported Not Detected (NotDetected); KPC Resistant Gene Not Detected (NotDetected); Koxytoca Not Reported Not Detected (NotDetected); Kpneumoniae grp Not Reported Not Detected (NotDetected); Lmonocyt Not Reported Not Detected (NotDetected); N meningitidis Not Reported Not Detected (NotDetected); NDM Resistant Gene Not Detected (NotDetected); P aeruginosa Not Reported DETECTED (NotDetected); Proteus spp Not Reported Not Detected (NotDetected); Salmonella spp Not Reported Not Detected (NotDetected); Staph lugdunensis Not Reported Not Detected (NotDetected); Staph spp. Not Reported Not Detected (NotDetected); Staphaureus Not Reported Not Detected (NotDetected); Staphepi Not Reported Not Detected (NotDetected); Stenmaltophilia Not Reported Not Detected (NotDetected); Strep agal(GrpB) Not Reported Not Detected (NotDetected); Strep pneum Not Reported Not Detected (NotDetected); Strep pyog (GrpA) Not Reported Not Detected (NotDetected); Strep spp Not Reported Not Detected (NotDetected); VIM Resistant Gene Not Detected (NotDetected)
[2025-05-16 08:23] LABS: Immature Granulocytes # (auto) 0.02 K/uL (0.01-0.20); Immature Granulocytes % (auto) 0.4 %; Platelet Count 96 K/uL (130-400); White Blood Count 5.35 K/ul (4.8-10.8)
[2025-05-16 08:26] LABS: Hematocrit (blood only) 17.7 % (42.0-52.0); Hemoglobin 5.8 g/dL (14.0-18.0); Mean Corpuscular Hemoglobin 32.6 pg (25.0-34.0); Mean Corpuscular Volume 100.0 fL (80.0-100.0); RDW Standard Deviation 57.4 fL (36.4-46.3); Red Blood Count 1.75 M/uL (4.70-6.10)
[2025-05-16 09:08] LABS: RBC Morphology Unremarkable
[2025-05-16] MEDS ORDERED: SODIUM CHLORIDE 0.9% 100 ML IV PRN ×2 (09:13→19:47)
--- NOTE | 2025-05-16 11:41 | Pulmonology Progress Note ---
Date of Service May 16, 2025 Assessment & Plan (1) Acute pneumonia: Plan: MRSA screen negative. Blood cultures growing Pseudomonas. Suspect that sputum cultures will be similar. Will consult ID to consider double coverage. Sputum cultures pending, but suspect will be Pseudomonas. Continue Zosyn. Patient with thick brown and reddish secretions. If he has significant hemoptysis, would give nebulized TXA. (2) Tracheostomy dependent: Plan: Tracheostomy changed 05/15/25 to a size 6 Shiley uncuffed. Patient did not have a tracheostomy change in 8 months since it was first put in. Continue routine trach care per nursing and RT. Appreciate nursing and RT input. (3) Metastatic squamous cell carcinoma to head and neck: Plan: Followed by ENT and oncology (4) Pseudomonal bacteremia: Plan I personally spent 42 minutes on the date of service in activities related to this patient's encounter, including 20 minutes of counseling with patient regarding treatment plan and 10 minutes of clinical review of lab results and documentation. I did counselor aid the patient regarding their diagnosis and treatment plan and they expressed understanding. This note was dictated using voice recognition software and may include grammatical errors, extra words, word substitutions and other inaccuracies due to errors in the voice recognition software and differences in speech patterns. Admission and Anticipated Discharge Date Admission Date: May 15, 2025 Subjective Patient with massive amounts of secretions from his tracheostomy site. No blood identified. He is feeling better with less shortness of breath. No fever or chills. Review of Systems Review of Systems: All systems reviewed & are unremarkable except as noted in HPI & below Physical Exam Physical Exam: Constitutional: Patient appears to be of their stated age. Patient is in no apparent distress. Patient is well-developed. Eyes: Pupils are equal round and reactive to light. Conjunctivae are normal. Anicteric sclera. Ears nose, mouth and throat: Mallampati class 2. Normal posterior oropharynx. Uvula is midline. Neck: Size [address] Massive purulent secretions coming from his tracheostomy. Respiratory: Mild tachypnea. Rhonchi in the right lower lobe. Cardiovascular: Regular rate and rhythm. No murmurs. No edema. Gastrointestinal: Normal bowel sounds, soft, nontender and nondistended. No hepatosplenomegaly noted. Musculoskeletal: No cyanosis. Patient is able to move all extremities. Skin: No rashes, warm dry and intact. Neurologic: No obvious focal neurological deficits seen. Psychiatric: Alert and oriented x3 with a euthymic affect. Results & Data Results & Data Vital Signs (Past 12 Hours) Vital Signs Temp Pulse Pulse Resp BP Pulse Ox O2 Del Method 05/16/25 07:44 36.9 C 64 24 94/54 L 98 Room Air 05/16/25 07:39 20 98 Room Air 05/16/25 03:07 36.4 C L 71 16 100/55 L 97 Room Air 05/16/25 01:12 76 18 98 Room Air PG Care Time/CCT Total # of Minutes Spent Total Time Spent with Patient: Total time spent is greater than 50% in coordination of care (as documented) at patient's floor/unit and/or counseling patient: Coding Level of Care Code 40460 SUB INP/OBS CARE 2/35MIN Diagnoses Acute pneumonia J18.9 Tracheostomy dependent Z93.0 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
--- NOTE | 2025-05-16 14:10 | Infectious Disease Consult ---
Date of Consultation May 16, 2025 Assessment & Plan (1) Pseudomonal bacteremia: (2) Acute pneumonia: (3) Tracheostomy dependent: (4) Acute hypoxemic respiratory failure: Plan Problems: #Pseudomonas bacteremia #Pneumonia Micro: 05/15 Sputum cx: Pseudomonas aeruginosa, scant normal bora 05/15 BCx x2: GNRs in 1/4 bottles. 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 On presentation, pt was afebrile, RR 25, requiring nonrebreather. Labs showed 7.08, Hb 7.5, Cr 1.84, lactate 2.3, procalcitonin 0.46. CXR 05/15 with airspace opacities in R lower lung suspicious for pneumonia/aspiration pneumonitis. Started on vanc, Zosyn, azithro. MRSA nares negative, vanc discontinued. Pulm consulted, exchanged tracheostomy 05/15. Blood culture growing Pseudomonas in 1/4 bottles. Sputum culture growing Pseudomonas aeruginosa, sensitivities pending. Recommendations: - Continue Zosyn. No need for dual coverage, but if he clinically worsens prior to return of sensitivities, can change to meropenem - Follow-up Pseudomonas sensitivities - Discontinued azithro Will continue to follow Consultation Information This patient recommendation is based on a telemedicine consult request which was completed asynchronously through chart review and information provided by the primary physician. The patient was not seen or examined today. The evaluation is consultative in nature and all patient care and treatment decisions can either be accepted or rejected by the patient's primary hospital-based treating physician using their own independent medical judgment for their patient. Patient Access Manager contact information: Please call [facility] . 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 On presentation, pt was afebrile, RR 25, requiring nonrebreather. Labs showed 7.08, Hb 7.5, Cr 1.84, lactate 2.3, procalcitonin 0.46. CXR 05/15 with airspace opacities in R lower lung suspicious for pneumonia/aspiration pneumonitis. Started on vanc, Zosyn, azithro. MRSA nares negative, vanc discontinued. Pulm consulted, exchanged tracheostomy 05/15. Blood culture growing Pseudomonas in 1/4 bottles. Sputum culture growing Pseudomonas aeruginosa, sensitivities pending. Allergies Allergy/AdvReac Type Severity Reaction Status Date / Time No Known Allergies Allergy Verified 04/20/25 08:51 Home Medications Medication Instructions Recorded Confirmed Type hydroxyzine HCl 50 mg tablet 0 mg PO HS 04/20/25 05/15/25 History levothyroxine 100 mcg capsule 100 mcg PO DAILY 04/20/25 05/15/25 History oxycodone 5 mg/5 mL oral solution 5 mg PO UD PRN Pain 05/15/25 05/15/25 History Patient History Medical History History of gastrostomy tube placement (03/31/22) Scalp laceration Orthostatic hypotension Hypokalemia Dizziness Delirium tremens Dehydration Calcified intracranial lesions Alcohol withdrawal Alcohol intoxication Left against medical advice Syncope and collapse Surgical History History of surgery (04/15/22) Left Osteocutaneous Fibula Free Flap, Inset to Right Oral Cavity Composite Defect with Microvascular Anastomosis Internal Fization/Plating of Mandible with Reconstruction Plate Repair of complex Introral Defect involving Right Oral Tongue, Floor of Mouth, Pharynx, Gingiva and Buccal Mucose, Retomolar Trione, Soft Palate, and Hemimandibulectomy. Complex Vestibuloplasty, Right Inferior Exploration of Right External Carotid Artery for Microvascular Anastomosis. Tracheostomy, planned, open Tracheobronchoscopy, flexible Dr. Andre Dixon History of surgery (04/15/22) Composite Resection of Right Oral Cavity Mass including Hemimandibulectomy, Partial Glossectomy, Portion of Floor of Mouth, Partial Pharyngectomy, and Partial Palatectomy Resection of Infratemporal Fossa Lesion, Extradural Extraction of Tooth #2 Right Neck Dissection Levels I-IV Dr. Kurtis Patel at [facility] History of shoulder surgery Right shoulder History of total right knee replacement Social History Smoking Status: Unknown if ever smoked Tobacco Type: Cigarettes packs per day: 1; Second Hand Exposure: Yes; Do You Dip or Chew Tobacco: Yes; Hx Alcohol Use: No Hx Substance Use: No Preferred Language: Estonian Communication Ability: Unable Communication Tools: Writing Tablet Visual Impairment: No Limitations Hearing Ability: Normal Sorter/Assay Tech Required: No Beliefs That Will Affect Care: None Current Living Situation: Parent Current Living Situation Comment: mother residing with patient current occupational status: disabled Feels Safe at Home: Yes Childhood Exposure to Second-Hand Smoke: Yes Diet: other Diet Comment: soft foods caffeine: No during the past year weight has: decreased > 10 lbs Dental Care, Regularly: No Assistive Devices: None Results & Data Vital Signs (Past 12 Hours) Vital Signs Temp Pulse Resp BP Pulse Ox O2 Del Method 05/16/25 12:53 Trach Collar 05/16/25 11:48 36.5 C 71 24 95/56 L 97 Room Air 05/16/25 11:40 18 97 Room Air 05/16/25 07:44 36.9 C 64 24 94/54 L 98 Room Air 05/16/25 07:39 20 98 Room Air 05/16/25 03:07 36.4 C L 71 16 100/55 L 97 Room Air
[2025-05-16 19:35] LABS: Hematocrit (blood only) 19.2 % (42.0-52.0); Hemoglobin 6.3 g/dL (14.0-18.0)
[2025-05-16 22:12] LABS: Hematocrit (blood only) 20.5 % (42.0-52.0); Hemoglobin 6.6 g/dL (14.0-18.0)
[2025-05-17 02:41] LABS: Hematocrit (blood only) 21.0 % (42.0-52.0); Hemoglobin 7.1 g/dL (14.0-18.0); Mean Corpuscular Hemoglobin 31.6 pg (25.0-34.0); Mean Corpuscular Volume 93.3 fL (80.0-100.0); Platelet Count 90 K/uL (130-400); RDW Standard Deviation 60.2 fL (36.4-46.3); Red Blood Count 2.25 M/uL (4.70-6.10); White Blood Count 4.58 K/ul (4.8-10.8)
[2025-05-17 02:44] LABS: Anion Gap 9.0 (3-11); Blood Urea Nitrogen 40.0 mg/dl (6-23); Calcium 8.2 mg/dl (8.6-10.3); Carbon Dioxide 23.0 mmol/L (21-32); Chloride 103.0 mmol/L (98-107); Creatinine Clr Calc Pharmacy 36.2 ml/min; Potassium 4.2 mmol/L (3.5-5.1); Sodium 135.0 mmol/L (136-145)
--- NOTE | 2025-05-17 06:44 | Hospitalist Progress Note ---
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 Patient's daughter notes that she has had thick secretions that are occasionally bloody and brownish over the past 1 to 2 months. Chest x-ray revealed right lower lobe nodular infiltrates. Pt is currently being managed for pneumonia. #Acute Pneumonia #Probable COPD -WBC: 4.58, Lactate 2.3->1.4, Procalcitonin 0.46 -MRSA nares negative -PCR + for pseudomonas -trach sputum, blood cultures + for pseudomonas; sensitive to zosyn -Pulmonology on board, appreciate recs -ID on board, appreciate recs -Chest x-ray today with right greater than left basilar airspace opacities unchanged from 2 days prior. -as per Pulm: recommend repeat chest x-ray in 1 to 2 weeks. -continue Zosyn 4.5g q8h (day 2/7; through 05/21). As per ID: Can continue Zosyn and transition to levofloxacin. (For CrCl 20 - <50, can dose as levofloxacin 750 mg PO q48h. If CrCl improves to >= 50, can administer as 750 mg q24h.) -Duonebs q6hrs -Supplemental Oxygen prn #Trach Dependent -s/p tracheostomy exchange. 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 Pantoja. Patient is a 65-year-old male with past medical history pertinent for head and neck squamous cell carcinoma s/p resection and reconstruction with laryngectomy and tracheostomy on admission for acute pneumonia and pseudomonas bacteremia. Hemoglobin level improves after transfusion, hgb 7.7. Secretions lessening from trach. Continue Zosyn. Remains on room air. Subjective Overnight pt received another unit of pRBCs, tolerated well. Pt seen and examined this AM at bedside. Today he states he feels about the same as yesterday. Breathing slightly improving. Denies any additional complaints. Denies fever, chills, CP, abdominal pain. Review of Systems Review of Systems: per HPI Physical Exam Physical Exam: GA: ill-appearing, no apparent distress. AAOx3 HEENT: facial deformity. EOMI. Trachea midline, no stridor. Trach in place. Productive purulent yellow sputum occasionally expressed when coughing LUNGS: Normal chest wall mechanics. Not tachypneic. Coarse sounds improving b/l, worse right lower chest. HEART: NSR, no MRG. MSK: no gross abnormalities or focal deficits SKIN: warm, dry, no edema NEURO: no focal deficits. Results & Data Results & Data Vital Signs (Past 12 Hours) Vital Signs Temp Pulse Pulse Pulse Resp BP BP 05/17/25 02:43 36.6 C 74 16 111/67 05/17/25 00:52 36.9 C 72 18 110/67 05/17/25 00:18 62 17 05/16/25 23:58 36.8 C 65 18 111/66 05/16/25 22:58 36.9 C 68 18 111/64 05/16/25 22:28 37.1 C 71 19 109/63 05/16/25 22:21 75 05/16/25 21:56 37.1 C 66 20 129/65 05/16/25 21:53 37.1 C 66 20 129/68 05/16/25 21:41 36.9 C 73 22 112/61 05/16/25 21:36 36.9 C 73 22 112/61 05/16/25 20:01 68 18 05/16/25 20:00 05/16/25 18:58 36.6 C 71 20 112/64 Pulse Ox O2 Del Method 05/17/25 02:43 97 Room Air 05/17/25 00:52 95 05/17/25 00:18 97 Room Air 05/16/25 23:58 96 05/16/25 22:58 98 05/16/25 22:28 98 05/16/25 22:21 05/16/25 21:56 98 05/16/25 21:53 98 05/16/25 21:41 94 05/16/25 21:36 95 05/16/25 20:01 97 Trach Collar 05/16/25 20:00 Trach Collar 05/16/25 18:58 96 Room Air Resident Activity Tracking Resident Involvement: Resident Care Provided Care Provided: Adult Hospital Medicine
[2025-05-17 08:50] LABS: Hematocrit (blood only) 22.3 % (42.0-52.0); Hemoglobin 7.7 g/dL (14.0-18.0); Reticulocytes # 0.050 10^6/uL (0.020-0.100)
[2025-05-17 09:17] LABS: INR 1.0 (0.9-1.1); Partial Thromboplastin Time 28 Seconds (21-31); Prothrombin Time 11.0 Seconds (9.0-12.0)
--- NOTE | 2025-05-17 10:06 | XRay Report ---
SINGLE VIEW CHEST CLINICAL HISTORY: Pneumonia FINDINGS: An AP, portable, upright chest radiograph is compared to studies dated 05/15/2025 and 024. Correlation is made with PET CT dated 04/11/2025. A tracheostomy and a right internal jugular mariusz tral venous catheter are unchanged in position. The heart is enlarged noting atherosclerotic calcific ation of the thoracic aorta. The pulmonary vasculature is noncongested. Emphysema and chronic interst itial thickening is similar to previous. Bibasilar airspace opacities are again noted, right side gre ater than left. These are likely similar to yesterday. No large pleural effusion or pneumothorax is s een. The skeletal structures are osteopenic. There are chronic/healed bilateral rib fractures. Degene rative change is noted in the shoulders and spine. Surgical clips are seen in the right lower neck. IMPRESSION: 1. Cardiomegaly and emphysema without radiographic evidence of congestive failure. 2. Right greater than left bibasilar airspace opacities are likely unchanged from yesterday and favor pneumonia/aspiration pneumonitis. Clinical correlation will be required and radiographic follow-up t o resolution is recommended. ACT 112: Negative or not required by law. Electronically signed by: Jesus Kwan M.D. 05/17/2025 10:04 AM
--- NOTE | 2025-05-17 10:51 | Infectious Disease Progress Nt ---
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 On presentation, pt was afebrile, RR 25, requiring nonrebreather. Labs showed 7.08, Hb 7.5, Cr 1.84, lactate 2.3, procalcitonin 0.46. CXR 05/15 with airspace opacities in R lower lung suspicious for pneumonia/aspiration pneumonitis. Started on vanc, Zosyn, azithro. MRSA nares negative, vanc discontinued. Pulm consulted, exchanged tracheostomy 05/15. Blood culture growing Pseudomonas in 1/4 bottles. Sputum culture growing Pseudomonas aeruginosa, chen-sensitive. Now improved, on room air. Recommendations: - Given clinical improvement, would complete a total 7 day course of antibiotics through 05/21. Can continue Zosyn and transition to levofloxacin if discharging. (For CrCl 20 - <50, can dose as levofloxacin 750 mg PO q48h. If CrCl improves to >= 50, can administer as 750 mg q24h.) Will sign off. Admission and Anticipated Discharge Date Admission Date: May 15, 2025 Subjective This patient recommendation is based on a telemedicine consult request which was completed asynchronously through chart review and information provided by the primary physician. The patient was not seen or examined today. The evaluation is consultative in nature and all patient care and treatment decisions can either be accepted or rejected by the patient's primary hospital-based treating physician using their own independent medical judgment for their patient. Time Spent Reviewing Chart: 11 - 20 minutes Afebrile without leukocytosis Continues on Zosyn Results & Data Vital Signs (Past 12 Hours) Vital Signs Temp Pulse Pulse Resp BP BP Pulse Ox 05/17/25 07:30 36.5 C 69 24 109/63 97 05/17/25 02:43 36.6 C 74 16 111/67 97 05/17/25 00:52 36.9 C 72 18 110/67 95 05/17/25 00:18 62 17 97 05/16/25 23:58 36.8 C 65 18 111/66 96 05/16/25 22:58 36.9 C 68 18 111/64 98 O2 Del Method 05/17/25 07:30 Room Air 05/17/25 02:43 Room Air 05/17/25 00:52 05/17/25 00:18 Room Air 05/16/25 23:58 05/16/25 22:58
--- NOTE | 2025-05-17 12:34 | Pulmonology Progress Note ---
Date of Service May 17, 2025 Assessment & Plan (1) Acute pneumonia: Plan: MRSA screen negative. Blood cultures growing Pseudomonas. Sputum cultures also with Pseudomonas. Appreciate ID input. Continue Zosyn. Chest x-ray today with right greater than left basilar airspace opacities unchanged from 2 days prior. Recommend repeat chest x-ray in 1 to 2 weeks. (2) Tracheostomy dependent: Plan: Tracheostomy changed 05/15/25 to a size 6 Shiley uncuffed. Patient did not have a tracheostomy change in 8 months since it was first put in. Continue routine trach care per nursing and RT. Appreciate nursing and RT input. 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 Plan I personally spent 25 minutes on the date of service in activities related to this patient's encounter, including 15 minutes of counseling with patient regarding treatment plan and 10 minutes of clinical review of lab results and d ocumentation. I did mortgage counselor the patient regarding their diagnosis and treatment plan and they expressed understanding. This note was dictated using voice recognition software and may include gramma tical errors, extra words, word substitutions and other inaccuracies due to errors in the voice recognition software and differences in speech patterns. Admission and Anticipated Discharge Date Admission Date: May 15, 2025 Subjective Patient continues with significant purulent drainage from tracheostomy. Saturating well on room air. Review of Systems Review of Systems: All systems reviewed & are unremarkable except as noted in HPI & below Physical Exam Physical Exam: Constitutional: Patient appears to be of their stated age. Patient is in no apparent distress. Patient is well-developed. Eyes: Pupils are equal round and reactive to light. Conjunctivae are normal. Anicteric sclera. Ears nose, mouth and throat: Mallampati class 2. Normal posterior oropharynx. Uvula is midline. Neck: Size [address] Massive purulent secretions coming from his tracheostomy. Respiratory: Mild tachypnea. Rhonchi in the right lower lobe. Cardiovascular: Regular rate and rhythm. No murmurs. No edema. Gastrointestinal: Normal bowel sounds, soft, nontender and nondistended. No hepatosplenomegaly noted. Musculoskeletal: No cyanosis. Patient is able to move all extremities. Skin: No rashes, warm dry and intact. Neurologic: No obvious focal neurological deficits seen. Psychiatric: Alert and oriented x3 with a euthymic affect. Results & Data Results & Data Vital Signs (Past 12 Hours) Vital Signs Temp Pulse Pulse Resp BP BP BP 05/17/25 11:04 36.7 C 77 23 103/54 L 05/17/25 07:30 36.5 C 69 24 109/63 05/17/25 02:43 36.6 C 74 16 111/67 05/17/25 00:52 36.9 C 72 18 110/67 Pulse Ox O2 Del Method 05/17/25 11:04 96 Room Air 05/17/25 07:30 97 Room Air 05/17/25 02:43 97 Room Air 05/17/25 00:52 95 PG Care Time/CCT Total # of Minutes Spent Total Time Spent with Patient: Total time spent is greater than 50% in coordination of care (as documented) at patient's floor/unit and/or counseling patient: Coding Level of Care Code 79777 SUB INP/OBS CARE 07/02MIN Diagnoses Acute pneumonia J18.9 Tracheostomy dependent Z93.0 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
[2025-05-18 06:32] LABS: Hematocrit (blood only) 21.6 % (42.0-52.0); Hemoglobin 7.3 g/dL (14.0-18.0); Immature Granulocytes # (auto) 0.01 K/uL (0.01-0.20); Immature Granulocytes % (auto) 0.3 %; Mean Corpuscular Hemoglobin 31.5 pg (25.0-34.0); Mean Corpuscular Volume 93.1 fL (80.0-100.0); Platelet Count 92 K/uL (130-400); RDW Standard Deviation 59.1 fL (36.4-46.3); Red Blood Count 2.32 M/uL (4.70-6.10); White Blood Count 3.66 K/ul (4.8-10.8)
--- NOTE | 2025-05-18 06:53 | Hospitalist Progress Note ---
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 Patient's daughter notes that she has had thick secretions that are occasionally bloody and brownish over the past 1 to 2 months. Chest x-ray revealed right lower lobe nodular infiltrates. Pt is currently being managed for pneumonia. #Pneumonia #Probable COPD #Pseudomonas Bacteremia -WBC: 3.6, Lactate 2.3->1.4, Procalcitonin 0.46 -MRSA nares negative -PCR + for pseudomonas -trach sputum, blood cultures + for pseudomonas; sensitive to zosyn, fluoroquinolones -Pulmonology on board, appreciate recs -ID signed off, appreciate recs -as per Pulm: recommend repeat chest x-ray in 1 to 2 weeks. -discontinue zosyn -start levofloxacin 750mg q48h as per ID recs, may switch to q24h if CrCl improves to >50. (day 4/7; through 05/21). -Duonebs q6hrs -Supplemental Oxygen prn #Trach Dependent -s/p tracheostomy exchange. 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 Pantoja. Patient is a 65-year-old male with past medical history pertinent for recurrent oropharyngeal squamous cell carcinoma s/p resection and reconstruction with laryngectomy and tracheostomy on admission for acute pneumonia and pseudomonas bacteremia. Hemoglobin 7.3. Patient transition to levofloxacin. Remains on room air. Radiation treatment rescheduled as patient may have difficulty lying flat due to secretions. Bilateral lungs with improved aeration, still coarse breath sounds but improved, less sputum from trach. Overall patient clinically improving, consider discharge home tomorrow. Subjective Overnight, Tyshawn did not sleep well due to coughing. Today at bedside, he said he feels a little better than yesterday. Occasionally has coughing fits which improve after nebulizer treatments. Is please his hemoglobin improved. Denies fever, chills, CP, abdominal pain. Review of Systems Review of Systems: per HPI Physical Exam Physical Exam: GA: ill-appearing, no apparent distress. AAOx3 HEENT: facial deformity. EOMI. Trachea midline, no stridor. Trach in place. Productive purulent white-yellow sputum occasionally expressed when coughing LUNGS: Normal chest wall mechanics. Not tachypneic. Coarse sounds improving b/l, worse right lower chest. HEART: NSR, no MRG. MSK: no gross abnormalities or focal deficits SKIN: warm, dry, no edema NEURO: no focal deficits. Results & Data Results & Data Vital Signs (Past 12 Hours) Vital Signs Temp Pulse Pulse Resp BP BP Pulse Ox 05/18/25 02:53 36.7 C 68 18 118/69 96 05/18/25 01:20 73 18 94 05/17/25 23:15 36.7 C 65 16 120/68 97 05/17/25 21:35 66 05/17/25 20:00 05/17/25 19:50 61 18 97 05/17/25 19:06 36.7 C 71 16 112/65 98 O2 Del Method FiO2 05/18/25 02:53 Room Air 05/18/25 01:20 Trach Collar 21 05/17/25 23:15 Room Air 05/17/25 21:35 05/17/25 20:00 Room Air 05/17/25 19:50 Room Air 05/17/25 19:06 Room Air Resident Activity Tracking Resident Involvement: Resident Care Provided Care Provided: Adult Hospital Medicine
[2025-05-18 07:08] LABS: RBC Morphology Unremarkable
[2025-05-18 07:18] LABS: Anion Gap 7.0 (3-11); Blood Urea Nitrogen 32.0 mg/dl (6-23); Calcium 8.2 mg/dl (8.6-10.3); Carbon Dioxide 24.0 mmol/L (21-32); Chloride 102.0 mmol/L (98-107); Creatinine Clr Calc Pharmacy 44.1 ml/min; Potassium 4.1 mmol/L (3.5-5.1); Sodium 133.0 mmol/L (136-145)
[2025-05-18] MEDS: levoFLOXacin ORAL SOLN 25MG/ML BTL PO SCH (18:15)
[2025-05-19 01:12] VITALS: RESP 18
[2025-05-19 06:21] LABS: Hematocrit (blood only) 23.5 % (42.0-52.0); Hemoglobin 7.9 g/dL (14.0-18.0); Immature Granulocytes # (auto) 0.00 K/uL (0.01-0.20); Immature Granulocytes % (auto) 0.0 %; Mean Corpuscular Hemoglobin 31.2 pg (25.0-34.0); Mean Corpuscular Volume 92.9 fL (80.0-100.0); Platelet Count 90 K/uL (130-400); RDW Standard Deviation 56.3 fL (36.4-46.3); Red Blood Count 2.53 M/uL (4.70-6.10); White Blood Count 3.55 K/ul (4.8-10.8)
--- NOTE | 2025-05-19 06:43 | Hospitalist Progress Note ---
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 Patient's daughter notes that she has had thick secretions that are occasionally bloody and brownish over the past 1 to 2 months. Chest x-ray revealed right lower lobe nodular infiltrates. Pt is currently being managed for pneumonia. #Pneumonia #Probable COPD #Pseudomonas Bacteremia -WBC: 3.6, Lactate 2.3->1.4, Procalcitonin 0.46 -MRSA nares negative -PCR + for pseudomonas -trach sputum, blood cultures + for pseudomonas; sensitive to zosyn, fluoroquino lones -Pulmonology on board, appreciate recs -ID signed off, appreciate recs -as per Pulm: recommend repeat chest x-ray in 1 to 2 weeks. -discontinue zosyn -start levofloxacin 750mg q48h as per ID recs, may switch to q24h if CrCl improves to >50. (day 4/7; through 05/21). -Duonebs q6hrs -Supplemental Oxygen prn #Trach Dependent -s/p tracheostomy exchange. 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 AAOx3 HEENT: facial deformity. EOMI. Trachea midline, no stridor. Trach in place. Productive purulent white-yellow sputum occasionally expressed when coughing LUNGS: Normal chest wall mechanics. Not tachypneic. Coarse sounds improving b/l, worse right lower chest. HEART: NSR, no MRG. MSK: no gross abnormalities or focal deficits SKIN: warm, dry, no edema NEURO: no focal deficits. Results & Data Results & Data Vital Signs (Past 12 Hours) Vital Signs Temp Pulse Pulse Resp BP Pulse Ox O2 Del Method 05/19/25 03:16 36.6 C 72 18 124/71 96 Room Air 05/19/25 01:11 72 18 97 Room Air 05/18/25 22:58 36.8 C 68 16 126/74 99 Room Air 05/18/25 21:37 75 05/18/25 20:55 Trach Collar 05/18/25 19:50 69 18 98 Room Air 05/18/25 19:36 36.7 C 65 18 135/74 98 Room Air
[2025-05-19 06:44] LABS: Anion Gap 8.0 (3-11); Blood Urea Nitrogen 32.0 mg/dl (6-23); Calcium 8.6 mg/dl (8.6-10.3); Carbon Dioxide 23.0 mmol/L (21-32); Chloride 101.0 mmol/L (98-107); Creatinine Clr Calc Pharmacy 44.9 ml/min; Potassium 4.3 mmol/L (3.5-5.1); Sodium 132.0 mmol/L (136-145)
[2025-05-19 06:45] LABS: Polychromasia 1+
[2025-05-19 11:38] VITALS: TEMP 98.1
[2025-05-19 12:14] VITALS: O2SAT 99
[2025-05-19] MEDS: NUTREN LIQD 2.0 1,000 ML BAG PEG SCH (12:27)
--- NOTE | 2025-05-19 13:20 | Discharge Summary ---
Date of Service May 19, 2025 Admission HPI Per Admitting Provider Mr. Vasquez is a 65yo gentleman with PMH of head and neck squamous cell cancer, former smoker who presented to the ED for shortness of breath and purulent secretions from his tracheostomy. He is accompanied by his daughter today who provided the history as pt is unable to speak but is able to nod yes/no. Pt was apparently well until this morning when daughter went to see him and noticed his breathing was more labored than usual. She noted pt had more secretions out of his trach tube. He has had the trach in place since about September 2024 as per the family. She said pt removed the tube in his trach as that helps him breath better. No known sick contacts. Pt denies any pain or discomfort. Pt denies fever, chills, CP, palpitations, N/V, abdominal pain, or complaints. Principal Diagnosis Acute Pneumonia, Pseudomonas infection Discharge Exam GA: ill-appearing, no apparent distress. AAOx3 HEENT: facial deformity. EOMI. Trachea midline, no stridor. Trach in place. Productive purulent clear-white sputum occasionally expressed when coughing LUNGS: Normal chest wall mechanics. Not tachypneic. Coarse sounds improving b/l HEART: NSR, no MRG. MSK: no gross abnormalities or focal deficits SKIN: warm, dry, no edema NEURO: no focal deficits. 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 Patient's daughter notes that she has had thick secretions that are occasionally bloody and brownish over the past 1 to 2 months. Chest x-ray revealed right lower lobe nodular infiltrates. Pt is currently being managed for pneumonia. #Pneumonia #Probable COPD #Pseudomonas Bacteremia -WBC: 2.53 , Lactate 2.3->1.4, Procalcitonin 0.46 -MRSA nares negative -PCR + for pseudomonas -trach sputum, blood cultures + for pseudomonas; sensitive to zosyn, fluoroquinolones -Pulmonology on board, appreciate recs -ID signed off, appreciate recs -as per Pulm: recommend repeat chest x-ray in 1 to 2 weeks ( -continue levofloxacin 750mg q48h (day 5/7). 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 -followed by ENT and Oncology -f/u outpatient Total Time Total Time Spent Total Time Spent (In Minutes): please see attending attestation Discharge Plan Discharge Items Patient Disposition: Home - Self-Care Reason For Visit: SOB Discharge Diagnosis: Pneumonia Condition on Discharge: Good Activity: Resume your previous activity Non-emergency contact: Primary Care Provider Call non-emergency contact if: your symptoms worsen, your pain is not controlled and you have a fever Follow-up/Referrals: Saqib Polanco MD [Outside Practitioners] - 05/25/25 9:00 am (New patient P [facility] [place] appointment- Hospital follow up) PCP,NO [Primary Care Provider] - Diet: Other - See Diet Comment Diet Comment: PEG feeds Addtl Attending Provider Instructions: You were admitted to the hospital for labored breathing and secretions from you tracheostomy tube. You were suspected of having pneumonia and treated with appropriate antibiotics. You were deemed stable for discharge after you clinically improved. The cultures of your blood and sputum grew a bacteria called Pseudomonas aeruginosa and the sensitivities of that showed you were on the correct antibiotic. Your hemoglobin (blood) was low and you were given 2 units of blood to raise it to an appropriate level. Medications Your medication list has been reviewed and reconciled. An updated list is included with your discharge paperwork; please review this list closely and make note of any changes. We sent a prescription for levofloxacin (antibiotic) to your pharmacy. Take levofloxacin 750mg every other day (next dose 05/20/25) and last dose on 05/22/25. This will be sent to your pharmacy. Please continue the rest of your home meds as prescribed. Take your medications as instructed; do not skip a dose. Make sure all of your doctors know every medicine you are taking (including pzkv-giq-tnkkwlz medici cassie, vitamins, and supplements). Call your PCP before taking any new medicines because some of these may interact with your current medications, or may make your symptoms worse. Follow-up appointments: Make a follow-up appointment with your PCP within the next week. It is very important that you follow up with them shortly after discharge from the hospital. -we are working on find you a PCP near [place]. Your Oncologist and Radiation Oncologist were made aware of your admission. Please continue to follow-up with them. Keep all your follow-up appointments as already scheduled. If you cannot make an appointment, notify your provider. Please bring a copy of this discharge summary with you to your next office appointment so that your provider can review it at that time and stay updated on your hospitalization and potential changes in your care. Contact your PCP if your symptoms return or worsen. Call 911 or go to the ER if you experience any of the following: Sudden, severe abdominal pain or nausea/vomiting Severe chest pain, or chest pain that radiates (moves) to your jaw or arm Sudden, severe shortness of breath or difficulty breathing Thank you for allowing us to participate in your care. Pending Studies at Discharge: No Stand-Alone Forms: My [email or web address], Smoking Cessation Medications and DC Order Prescriptions: New levofloxacin 250 mg/10 mL Solution 750 mg PO Q48H 2 Days Qty: 30 0RF Continued hydroxyzine HCl 50 mg tablet 0 mg PO HS Patient Comments: 05/15-last filled 11/09 30 day supply #30. Original:50 mg po hs levothyroxine 100 mcg capsule 100 mcg PO DAILY oxycodone 5 mg/5 mL solution 5 mg PO UD PRN (Reason: Pain) Discharge Orders: Discharge Order (Routine); Ordered 05/19/25 Ordered By: Alexandre Pantoja Admission Data Admit Date/Time: 05/15/25 13:51 Attending Provider: Alexandre Hansen Admit Provider: Alexandre Pantoja Primary Care Provider: PCP,NO Other Providers: Reynaldo Guillen; Han Hinson; Jair Wong; Marybel Hernandez; Criss Marti; Raji Calix; Ty Jaquez; Clemencia Lehman; Zachary Duran Other Interventions: Discharge Summary Assessment (RN) Last Done: 05/19/25 14:27 Supervising Physician Co-Signing Physician Notes Attending attestation Pt seen and examined in concert with Dr. Pantoja. In agreement with the documented findings as noted in the resident documentation with any exceptions or additions as noted here. Ongoing improvement in trach clearance with approach to baseline. VS as noted. On examination, S1/S2 nl RRR no MCG. CTAB. Abd NT/ND BS+ve Pseudomonal pneumonia in the setting of tracheostomy - ID, pulm consult - complete 7 day course of levofloxacin as noted with recommendations for trach maintenance reviewed as noted. Anemia, normocytic, s/p 2U PRBC - recommend repeat CBC at follow up to ensure stability Else see resident documentation as noted. Total attending physician time spent with this patient's care on the day of discharge: 35 minutes. Resident Activity Tracking Resident Involvement: Resident Care Provided Care Provided: Adult Hospital Medicine
[2025-05-19 14:30] VITALS: BP 124/71; PULSE 74
[2025-05-19] MEDS: HEPARIN 100 UNIT/ML 5ML FLUSH FLUSH PRN (15:57)
--- NOTE | 2025-05-20 07:23 | Electrocardiogram Report ---
Test Reason : Blood Pressure : */* mmHG Vent. Rate : 90 BPM Atrial Rate : 90 BPM P-R Int : 162 ms QRS Dur : 68 ms QT Int : 378 ms P-R-T Axes : 45 60 47 degrees QTcB Int : 462 ms Poor data quality, interpretation may be adversely affected Normal sinus rhythm Anteroseptal infarct , age undetermined Abnormal ECG When compared with ECG of 30-Jul-2023 12:10, Premature supraventricular complexes are no longer Present Anteroseptal infarct is now Present Confirmed by See Valle ([id number]) on 05/20/2025 7:22:47 AM Referred By: REFERRED SELF Confirmed By: See Valle
== END 2025-05-19 16:15 | disposition home or self-care (01) | DRG 194 ==
LOC: ED 10:42 → EDINP 13:51 → SUATTDRO 13:51 → EDINP 15:25 → 3W 16:30 → 2S 20:49
DX: J44.0 Chronic obstructive pulmonary disease with (acute) lower respiratory infection; Z93.0 Tracheostomy status; B96.5 Pseudomonas (aeruginosa) (mallei) (pseudomallei) as the cause of diseases classified elsewhere; J18.9 Pneumonia, unspecified organism; D64.9 Anemia, unspecified; I10 Essential (primary) hypertension; Z93.1 Gastrostomy status; Z87.891 Personal history of nicotine dependence; C06.2 Malignant neoplasm of retromolar area; N17.9 Acute kidney failure, unspecified; C79.89 Secondary malignant neoplasm of other specified sites; R78.81 Bacteremia; Z90.02 Acquired absence of larynx